=== PATIENT | male | born 1955 | race African-American/Black ===

== ENCOUNTER 2016-08-30 11:43 | Emergency (ER) | payer OTHER ==
[~2016-08-30] VITALS: Ht 185.4 cm; Wt 79.0 kg
[~2016-08-30 11:43] MED LIST: Z.0.NO CURRENT MEDS
[2016-08-30 11:58] VITALS: BP 192/122; PULSE 97; RESP 15; TEMP 98.2; O2SAT 98
[2016-08-30 12:00] VITALS: BP 187/102; PULSE 105; RESP 16; O2SAT 98
[2016-08-30 13:23] VITALS: BP 216/111; PULSE 70; RESP 14; TEMP 98.5; O2SAT 100
[2016-08-30] MEDS ORDERED: LISI2.5T3 PO (13:28)
[2016-08-30] MEDS ORDERED: ASPI81CH CHEW (13:29)
[2016-08-30] MEDS ORDERED: METO25TA3 PO (13:29)
[2016-08-30] MEDS ORDERED: LIDOCAINE 1%/EPINEPHrine 1:100,000 SOLN 20 ML VIAL INFIL ONE (13:45)
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
[2016-08-30] MEDS ORDERED: NON-325T2 PO (14:44)
== END 2016-08-30 15:02 | disposition home or self-care (01) ==
LOC: NEPD 11:43
DX: S01.81XA Laceration without foreign body of other part of head, initial encounter (principal); S00.03XA Contusion of scalp, initial encounter; I10 Essential (primary) hypertension; F17.210 Nicotine dependence, cigarettes, uncomplicated; W22.8XXA Striking against or struck by other objects, initial encounter; Y93.9 Activity, unspecified; Y92.9 Unspecified place or not applicable; Y00.XXXA Assault by blunt object, initial encounter
CPT/HCPCS: 12011; 70450